=== PATIENT | female | born 1970 | race Caucasian/White ===

== ENCOUNTER 2016-10-03 13:33 | Outpatient (CLI) | payer OTHER | END 2016-10-03 23:00 | LOC: LAB SRH 13:33 | DX: R53.83 Other fatigue (principal); J32.9 Chronic sinusitis, unspecified; G43.109 Migraine with aura, not intractable, without status migrainosus | CPT/HCPCS: 90074; 90100; 91023; 91096; 91282; 93140; 95059 ==